=== PATIENT | female | born 1950 | race African-American/Black ===

== ENCOUNTER 2017-09-09 11:54 | Emergency (ER) | payer MEDICARE, MEDICAID ==
[~2017-09-09] VITALS: Ht 160 cm; Wt 77.0 kg
[~2017-09-09 11:54] MED LIST: ASPI-1160; QUET25TA
[2017-09-09 12:58] VITALS: BP 143/91
== END 2017-09-09 18:09 | disposition left against medical advice (07) ==
LOC: ER 13:28
DX: Z53.21 Procedure and treatment not carried out due to patient leaving prior to being seen by health care provider (principal)